=== PATIENT | female | born 1945 | race Caucasian/White ===

== ENCOUNTER 2019-03-01 11:56 | Emergency (ER) | payer MEDICARE, OTHER ==
[~2019-03-01] VITALS: Ht 160 cm; Wt 66.6 kg
[~2019-03-01 11:56] MED LIST: ALBU18HF2 INH; AMLO5TAB16 PO; BUDE10.22 INH; GUAI100L97 PO; LEVO500T2 PO
[2019-03-01 12:12] VITALS: BP 174/69
[2019-03-01] MEDS ORDERED: cephalexin 250mg capsule PO ONE (13:45)
[2019-03-01] MEDS ORDERED: CEPH500C5 PO (13:49)
== END 2019-03-01 14:13 | disposition home or self-care (01) ==
LOC: ER 11:56
DX: L03.115 Cellulitis of right lower limb (principal); J45.909 Unspecified asthma, uncomplicated; Z88.6 Allergy status to analgesic agent; Z79.2 Long term (current) use of antibiotics; Z79.899 Other long term (current) drug therapy; Z98.890 Other specified postprocedural states
CPT/HCPCS: 99283